=== PATIENT | male | born 1985 | race Caucasian/White ===

== ENCOUNTER 2020-01-05 15:15 | Emergency (ER) | payer SELFPAY ==
[~2020-01-05] VITALS: Ht 203.2 cm; Wt 77.6 kg
[2020-01-05 15:23] VITALS: BP 122/71
--- NOTE | 2020-01-05 15:57 | NUR ---
Patient discharged to home in stable condition. Written and verbal after care instructions given. Patient verbalizes understanding of instruction.
== END 2020-01-05 15:57 | disposition home or self-care (01) ==
LOC: ER 15:15
DX: M54.5 Low back pain (principal)